=== PATIENT | female | born 1980 | race Caucasian/White ===

== ENCOUNTER 2020-05-23 15:09 | Emergency (ER) | payer OTHER, SELFPAY ==
[2020-05-23 15:21] VITALS: BP 124/55; PULSE 80; RESP 16; TEMP 36.5; O2SAT 99
[2020-05-23 15:23] VITALS: BP 124/55; PULSE 80; RESP 16; TEMP 36.5; O2SAT 99
--- NOTE | 2020-05-23 15:41 | ED.GENADULT ---
HPI - General Adult General Chief complaint: Unspecified Stated complaint: Pulled muscle in chest Time Seen by Provider: 05/23/20 15:28 Source: patient and RN notes reviewed Mode of arrival: ambulatory Limitations: no limitations History of Present Illness HPI narrative: Patient presents today complaining of pain to her left chest area x3 weeks, worse over the last 2 days. Pain increases when she lies on her left side. States that she has had pain like this in the past. Reports history of scoliosis and states that it is exacerbated when she lies on her left side. She has been taking Tylenol and Advil with mild relief. States her pain increases when she takes a deep breath, but only when lying on her side. MD complaint: Left chest pain Related Data Home Medications Medication Instructions Recorded Confirmed Iud 05/23/20 rabeprazole mg PO 05/23/20 Allergies Allergy/AdvReac Type Severity Reaction Status Date / Time No Known Allergies Allergy Verified 02/16/17 12:14 Review of Systems Review of Systems: Narrative: CONSTITUTIONAL: Denies body aches, fever, chills, or sweats. EYES: Denies visual changes, redness, or discharge. ENT: Denies rhinorrhea, congestion, sore throat, or otalgia. CARDIOVASCULAR: Denies chest pain, palpitations, or edema. RESPIRATORY: Denies cough or dyspnea. GASTROINTESTINAL: Denies abdominal pain, nausea, vomiting, or diarrhea. GENITOURINARY: Denies dysuria or hematuria. SKIN: Denies rash, itching, or wounds. MUSCULOSKELETAL: Denies back pain, joint pain, or myalgia.+ Left chest wall pain NEUROLOGIC: Denies headache, numbness, tingling, or weakness. PSYCH: Denies depression or anxiety. [facility] Past Medical History Medical History (Updated 05/23/20 @ 15:57 by Lauren Reveles, [facility], ) GERD (gastroesophageal reflux disease) Scoliosis Comments At time of signature, I have reviewed and agree with nursing past medical, surgical, social and family history unless otherwise noted. Please see nursing chart for further information. There is no relevant family history pertinent to the presenting complaint Exam Narrative: Exam Narrative: GENERAL: Well-appearing, well-nourished, and in no acute distress. HEAD: Normocephalic, atraumatic. EYES: EOMI. No redness or drainage. Conjunctivae normal. ENT: Mucous membranes pink and moist. NECK: Normal AROM. CHEST: No respiratory distress. Clear to auscultation. HEART: Regular rate and rhythm. No murmur appreciated. Normal peripheral pulses. MUSCULOSKELETAL: Mild musculoskeletal tenderness to left chest, especially at left sternal border. No deformity, edema, erythema, or ecchymosis. EXTREMITIES: Normal range of motion. No edema. SKIN: Warm, dry, no rash. Capillary refill normal. Normal skin turgor. NEURO: No focal deficits. Alert and oriented x3. Gait steady. PSYCH: Normal affect. No signs of depression or anxiety. Course Vital Signs Vital signs: Vital Signs Temperature 97.7 F 05/23/20 15:21 Pulse Rate 80 05/23/20 15:21 Respiratory Rate 16 05/23/20 15:21 Blood Pressure 124/55 L 05/23/20 15:21 Pulse Oximetry 99 05/23/20 15:21 Temperature 97.7 F 05/23/20 15:23 Pulse Rate 80 05/23/20 15:23 Respiratory Rate 16 05/23/20 15:23 Blood Pressure 124/55 L 05/23/20 15:23 Pulse Oximetry 99 05/23/20 15:23 Reviewed. Pt has been instructed to follow up with her PCP regarding her elevated blood pressure today. Medical Decision Making Differential Diagnosis Differential Diagnosis: Costochondritis, pleurisy, chest wall strain, musculoskeletal pain Vital Signs Vital Signs: Vital Signs Temperature 97.7 F 05/23/20 15:21 Pulse Rate 80 05/23/20 15:21 Respiratory Rate 16 05/23/20 15:21 Blood Pressure 124/55 L 05/23/20 15:21 Pulse Oximetry 99 05/23/20 15:21 Temperature 97.7 F 05/23/20 15:23 Pulse Rate 80 05/23/20 15:23 Respiratory Rate 16 05/23/20 15:23 Blood Pressure 124/55 L 05/23/20
== END 2020-05-23 15:44 | disposition home or self-care (01) ==
PROVIDERS: Emergency Provider Nurse Practitioner
DX: M94.0 Chondrocostal junction syndrome [Tietze] (principal); K21.9 Gastro-esophageal reflux disease without esophagitis; M41.9 Scoliosis, unspecified
CPT/HCPCS: 99213; G0463